=== PATIENT | female | born 1970 | race Caucasian/White ===

== ENCOUNTER 2016-03-25 21:50 | Emergency (ER) | payer OTHER ==
[~2016-03-25] VITALS: Ht 167.6 cm; Wt 56.2 kg
[2016-03-25 22:35] LABS: ABSOLUTE BASOPHIL COUNT 0 /CUMM (0.0-0.2); ABSOLUTE EOSINOPHIL COUNT 0.3 /CUMM (0.0-0.7); ABSOLUTE GRANULOCYTE CT 2.8 /CUMM (1.4-6.5); ABSOLUTE LYMPH COUNT 2.7 /CUMM (1.2-3.4); ABSOLUTE MONOCYTE COUNT 0.5 /CUMM (0.10-0.60); BASOPHIL % 0.5 % (0.0-2.0); GRANULOCYTE % 44.8 % (42.2-75.2); HEMATOCRIT 42.1 % (37-47); MEAN CORPUSCULAR HGB 29.6 PG (27.0-31.0); MEAN CORPUSCULAR HGB CONC 33.8 G/DL (33.0-37.0); MEAN CORPUSCULAR VOLUME 87.7 FL (81.0-99.0); MEAN PLATELET VOLUME 8.3 FL (7.4-10.4); PLATELET COUNT 276 /CUMM (130-400); RBC DISTRIBUTION WIDTH 13.4 % (11.5-14.5); WHITE BLOOD CELL COUNT 6.3 /CUMM (4.8-10.8)
--- NOTE | 2016-03-25 22:40 | ED CARDIAC/CP/PALPITATIONS ---
History of Present Illness General Chief Complaint: Chest Pain Stated Complaint: CHEST PAIN Source: patient, old records Exam Limitations: no limitations Vital Signs & Intake/Output Vital Signs & Intake/Output Vital Signs Date Time Temp Pulse Resp B/P Pulse O2 O2 Flow FiO2 Ox Delivery Rate 03/26 0053 97.9 65 18 111/70 98 Room Air 03/26 0012 98 Room Air 03/25 2206 97.8 96 20 153/95 98 Room Air ED Intake and Output 03/26 0000 03/25 1200 Intake Total Output Total Balance Patient 124 lb Weight Allergies Coded Allergies: meperidine (From DEMEROL) (Intermediate, VOMITING 03/25/16) Triage Note: TRIAGE: PT TO ER C/C R SIDED CHEST PAIN X 1 WK, INTERMITTENT SINCE ONSET. ALSO WITH S/S OF DIZZINESS, NAUSEA. [facility] AND HAD MAMMOGRAM AND ULTRASOUND DONE. STATES "THEY WERE CLEAR". WAS TOLD TO FOLLOW UP WITH PMD. CAN'T GET IN UNTIL THURSDAY. PT HAD EKG IN [place] PRIOR TO TRIAGE, HR 92 NSR. Triage Nurses Notes Reviewed? yes HPI: Patient presents with a sharp pain to the left sternal border since this morning. The patient is been constant and radiates to her left arm. There are no aggravating or mitigating factors. Patient states that 2 weeks ago she started with numbness and tingling in her right arm. Then a week and half ago she started with pain in her right breast so she had a mammogram which just showed some calcifications but she was told everything was normal. She continues to have that numbness tingling in her right arm and that pain in her right breast. Patient has an appointment with her primary care physician on Thursday but since she developed this sharp left-sided chest pain just decided to come in for evaluation. Patient feels very anxious but denies any shortness of breath. There is no nausea or vomiting. There is no diaphoresis. Past History Travel History Traveled to [place] past 21 day No Medical History Any Pertinent Medical History? see below for history Neurological: NONE EENT: NONE Cardiovascular: NONE Respiratory: PUNCTURED L LUNG Gastrointestinal: NONE Hepatic: NONE Renal: NONE Musculoskeletal: C2 FX RIB FX R HUMERUS FX PELVIS FX Psychiatric: NONE Endocrine: NONE Blood Disorders: NONE Cancer(s): NONE SWEDISH MASSEUSE/Reproductive: NONE Surgical History Surgical History: non-contributory Psychosocial History What is your primary language Yi Tobacco Use: Never used ETOH Use: occasional use Illicit Drug Use: denies illicit drug use Family History Hx Contributory? No Review of Systems Review of Systems Constitutional: Reports: no symptoms. EENTM: Reports: no symptoms. Respiratory: Reports: no symptoms. Cardiovascular: Reports: see HPI, chest pain. GI: Reports: no symptoms. Genitourinary: Reports: no symptoms. Musculoskeletal: Reports: see HPI. Skin: Reports: no symptoms. Neurological/Psychological: Reports: see HPI. Hematologic/Endocrine: Reports: no symptoms. Immunologic/Allergic: Reports: no symptoms. All Other Systems: Reviewed and Negative Physical Exam Physical Exam General Appearance: well developed/nourished, alert, awake, anxious, mild distress Head: atraumatic, normal appearance Eyes: Bilateral: PERRL, EOMI. Ears, Nose, Throat: normal pharynx, normal ENT inspection, hearing grossly normal Neck: normal inspection, supple, full range of motion Respiratory: normal breath sounds, chest non-tender, no respiratory distress, lungs clear Cardiovascular: regular rate/rhythm, normal peripheral pulses Gastrointestinal: normal bowel sounds, soft, non-tender, no organomegaly Back: normal inspection Extremities: normal inspection, normal capillary refill, normal range of motion, no edema Neurologic/Psych: no motor/sensory deficits, awake, alert, oriented x 3, normal mood/affect Skin: intact, normal color, warm/dry Lymphatic: no anterior cervical arash Core Measures ACS in differential dx? Yes ASA ordered for poss ACS? No-ACS ruled out Severe Sepsis Present: No Septic Shock Present: No Progress Differential Diagnosis: AMI, aortic dissection, costochondritis, musculoskeletal pain, myocarditis, pericarditis, pneumonia, pneumothorax, pulmonary embolism Plan of Care: Orders Procedure Date/time Status Add-on Test (ER Only) 03/25 2240 Active TROPONIN LEVEL 03/25 222 Complete D-DIMER 03/25 2210 Complete COMPREHENSIVE METABOLIC PANEL 03/25 2210 Complete CBC WITHOUT DIFFERENTIAL 03/25 2210 Complete EKG 03/25 2151 Active Laboratory Tests 03/25/16 2220: Anion Gap 12, Estimated GFR > 60, BUN/Creatinine Ratio 12.5, Glucose 116 H, Calcium 9.9, Total Bilirubin 0.7, AST 22, ALT 29, Alkaline Phosphatase 57, Troponin I < 0.01, Total Protein 7.9, Albumin 4.7, Globulin 3.2, Albumin/ Globulin Ratio 1.5, D-Dimer 203, CBC w Diff NO MAN DIFF REQ, RBC 4.80, MCV 87.7, MCH 29.6, RDW 13.4, MPV 8.3, Gran % 44.8, Lymphocytes % 43.0, Monocytes % 7.7, Eosinophils % 4.0, Basophils % 0.5, Absolute Granulocytes 2.8, Absolute Lymphocytes 2.7, Absolute Monocytes 0.5, Absolute Eosinophils 0.3, Absolute Basophils 0, PUBS MCHC 33.8 Diagnostic Imaging: Viewed by Me: Radiology Read. Discussed w/RAD: Radiology Read. CXR Impression: PATIENT: JANETH GTZ PRESENT AGE: 45 PATIENT ACCOUNT NO: [id number] : 69 LOCATION: [facility] ORDERING PHYSICIAN: AIME WINTER MD SERVICE DATE: 03/25/16 EXAM TYPE: RAD - XRY- PORTABLE CHEST XRAY EXAMINATION: XR PORTABLE CHEST CLINICAL INFORMATION: Chest pain COMPARISON: None. TECHNIQUE: Portable view of the chest was obtained. FINDINGS: Lung volumes are symmetric. There is trace streaky opacity at the left base suggesting atelectasis. No additional consolidation. No evidence of pneumothorax or overt pulmonary edema. A trace left pleural effusion is difficult to exclude. The cardiomediastinal contour is unremarkable. No acute osseous findings are seen. IMPRESSION: Trace left basilar opacity suggesting atelectasis. Possible trace left pleural effusion. DICTATED BY: CHRIS LOAIZA MD DATE/TIME DICTATED:03/26/1649 CONTACT CENTER ANALYST:RUBY DATE/TIME TRANSCRIBED:03/26/1649 CONFIDENTIAL, DO NOT COPY WITHOUT APPROPRIATE AUTHORIZATION. <Electronically signed in Other Vendor System> SIGNED BY: CHRIS LOAIZA MD 03/26/1654 Initial ED EKG: NSR, nonspecific ST T wave chg Prior EKG: unchanged Departure Departure Disposition: HOME OR SELF CARE Condition: Stable Clinical Impression Primary Impression: Chest pain, unspecified Qualifiers: Chest pain type: other chest pain Qualified Code: R07.89 - Other chest pain Referrals: SERA MARTINS,RUBA (PCP/Family) Additional Instructions: FOLLOW UP WITH DR. ZAMORA RETURN IF SYMPTOMS WORSEN OR FOR ANY CONCERNS Departure Forms: Customer Survey General Discharge Information Critical Care Note Critical Care Note Critical Care Time: non-applicable
[2016-03-26 00:53] VITALS: BP 111/70
--- NOTE | 2016-03-26 00:55 | RADIOLOGY REPORT ---
EXAMINATION: XR PORTABLE CHEST CLINICAL INFORMATION: Chest pain COMPARISON: None. TECHNIQUE: Portable view of the chest was obtained. FINDINGS: Lung volumes are symmetric. There is trace streaky opacity at the left base suggesting atelectasis. No additional consolidation. No evidence of pneumothorax or overt pulmonary edema. A trace left pleural effusion is difficult to exclude. The cardiomediastinal contour is unremarkable. No acute osseous findings are seen. IMPRESSION: Trace left basilar opacity suggesting atelectasis. Possible trace left pleural effusion.
== END 2016-03-26 01:09 ==
LOC: ERH 21:50
PROVIDERS: Emergency Medicine
DX: R07.89 Other chest pain (principal)
CPT/HCPCS: 93005; 93010

== ENCOUNTER → 2016-05-08 | Day surgery (SDC) | payer OTHER ==
--- NOTE | 2016-05-08 09:12 | Operative Report ---
Operative/Inv Procedure Report Surgery Date: 05/08/16 Name of Procedure: hysteroscopy,D+C Pre-Operative Diagnosis: irregular menses, thickened endometrium Post-Operative Diagnosis: same Estimated Blood Loss: less than 50ml Surgeon/Clinical Data Management Director: CORAL WALLS MD Anesthesia: moderate sedation IV Fluids: LR Implants: none Urine Output: straight cath 50ml clear urine at the beginning of procedure Specimens: EMC Complications: none Condition: stable Operative Indication: 45yo, amenorrhea for 9 month, thickened endometrium on pelvic ultrasound. Operative/Procedure Note Note: The patient was taken to the opertating room where IV sedation was found to be adequate. she was then examed under anesthesia and found to have a anteverted uterus . She was then placed in dorsal lithotomy position and prepared and draped in usual sterile fashion.A bivalve speculum was placed in patient's vagina and anterior lip of the cervix grasped with single tooth tenaculum. The uterus was then gently sounded to 7 cm. The cervix was dialted to accomodate a diagnostic hysterosope, the hysteroscope was inserted to uterine cavity,normal endometrium observed, hysterosocpe was withdrawn from the uterine cavity, a sharp currettage was then performed until a gritty texture was noted. specimen sent to pathology. There was minimal bleeding noted and the tenaculum removed, silver nitrate was used to achieve good hemostasis on the cervix. The patient tolerate procedure well, all instruments, laps counts were correct. The patient was atken to the recovery room in stable condition. Findings: anteverted uterus, sound 7 cm, normal looking endometrium CC: CORAL WALLS MD
== END ==
LOC: STS 05-07 23:03
DX: N92.6 Irregular menstruation, unspecified (principal); R93.8 Abnormal findings on diagnostic imaging of other specified body structures; N85.4 Malposition of uterus
CPT/HCPCS: 88305; J0131; J1885; J2250